=== PATIENT | female | born 1990 | race Two or more races ===

== ENCOUNTER 2025-03-15 07:29 | Emergency (ER) | payer MEDICAID, SELFPAY ==
[2025-03-15 07:30] VITALS: BMI 25.2
[2025-03-15 07:38] VITALS: BP 105/71; PULSE 67; RESP 16; TEMP 37.3; O2SAT 98
--- NOTE | 2025-03-15 07:42 | EDNOTE_ITS ---
<Statement entered by Sunitha Degroot MD - 03/15/25 12:29> As co-signing physician, I was present and available for consult prn. I concur with the plan and care as documented by the midlevel provider. ED OB Contraction Preg RMI/HPI General Chief complaint: Vaginal Bleeding Stated complaint: 8WKS PREG WITH VAG BLEEDING Time Seen by Provider: 03/15/25 07:33 Source: patient Arrival date/time: 03/15/25 07:29 35-year-old female with no known medical history presents to the emergency room with a chief complaint of vaginal spotting x 2 days. Patient is currently 8 weeks . She is a G4, P2 Mode of arrival: ambulatory Limitations: no limitations Related Data Home Medications ?Medication ?Instructions ?Recorded ?Confirmed vit no.95-ferrous 1 tab PO QDAY 11/21/23 0601/16 fumarate 28 mg-folic acid 800 mcg tablet () Previous Rx's ?Medication ?Instructions ?Recorded docusate sodium 100 mg capsule 100 mg PO BID #30 caps 11/23/23 (Colace) ibuprofen 600 mg tablet 600 mg PO Q6H PRN fever or p ain 11/23/23 #30 tabs Allergies Allergy/AdvReac Type Severity Reaction Status Date / Time No Known Allergies Allergy Verified 03/15/25 07:32 Review of Systems Review of Systems Systems Reviewed: All systems reviewed, normal except as documented Constitutional Constitutional: Reports system reviewed and no additional complaints, except as documented, Denies fatigue, Denies fever(s), Denies headache(s) and Denies weakness Eyes Eyes: Reports system reviewed and no additional complaints, except as documented, Denies blurry vision and Denies change in vision ENT Ears, Nose, Mouth, and Throat: Reports system reviewed and no additional complaints, except as documented, Denies otalgia, Denies headache(s), Denies nasal congestion, Denies throat swelling and Denies vertigo Cardiovascular Cardiovascular: Reports system reviewed and no additional complaints, except as documented, Denies chest pain, Denies dyspnea and Denies dyspnea on exertion Respiratory Respiratory: Reports system reviewed and no additional complaints, except as documented, Denies chest congestion, Denies cough, Denies dyspnea, Denies dy spnea on exertion and Denies wheezing Gastrointestinal Gastrointestinal: Reports system reviewed and no additional complaints, except as documented, Denies abdominal pain, Denies cramping, Denies nausea and Denies vomiting Genitourinary Genitourinary: Reports system reviewed and no additional complaints, except as documented, Reports abnormal vaginal bleeding and Reports pelvic pain Musculoskeletal Musculoskeletal: Reports system reviewed and no additional complaints, except as documented and Reports back pain Integumentary/Breasts Skin/Breast: Reports system reviewed and no additional complaints, except as documented and Denies wounds Neurologic Neurologic: Reports system reviewed and no additional complaints, except as documented, Denies confusion, Denies headache(s), Denies lack of coordination, Denies vertigo and Denies weakness Psychiatric Psychiatric: Reports system reviewed and no additional complaints, except as documented, Denies anxiety, Denies confusion, Denies depression, Denies paranoia, Denies suicidal ideation and Denies tactile hallucinations Endocrine Endocrine: Reports system reviewed and no additional complaints, except as documented and Denies fatigue Hematologic/Lymphatic Hematologic/Lymphatic: Reports system reviewed and no additional complaints, except as documented and Denies lymphadenopathy Allergic/Immunologic Allergic/Immunologic: Reports system reviewed and no additional complaints, except as documented, Denies throat swelling, Denies urticaria and Denies wheezing Past Medical History Past Medical History CARDIAC: Negative Cardiac Disorders or Congestive Heart Failure RESPIRATORY: Negative Chronic Obstructive Pulmonary Disease (COPD) or Asthma GASTROINTESTINAL: Negative Hepatitis GENITOURINARY: Negative Renal Disease REPRODUCTIVE: Negative Endometriosis, Pelvic Inflammatory Disease, Previous Pregnancies or Uterine Prolapse ENDOCRINE: Negative Diabetes Mellitus Type 1 or Diabetes Mellitus Type 2 HEMATOLOGIC: Negative Sickle Cell Disease PSYCHO/SOCIAL: Positive Anxiety OTHER HISTORY: Negative Autoimmune Disease, MRSA, VRSA, Vancomycin-Resistant E nterococci, Human Immunodeficiency Virus (HIV), Chicken Pox, Measles, Mumps, Rubella (Ivorian Measles), Pertussis, Clostridium Difficile or Cancer Family History FAMILY HISTORY: Positive Family Cardiac Disorders (high blood pressure-mom); Negative Family Psychiatric Problems, Family Respiratory Disorders, Family Gastrointestinal Problems, Family Cancer, Family Surgery or Family Anesthesia Reaction Social History SMOKING STATUS: Never smoker ED Exam General Limitations: Present no limitations General appearance: Present alert and in no apparent distress Head Head exam: Present atraumatic Eye Eye exam: Present normal appearance, PERRL and EOMI ENT ENT exam: Present normal exam, normal oropharynx and mucous membranes moist Neck Neck exam: Present normal inspection, full ROM and trachea midline Chest Chest inspection: Present normal inspection and symmetric chest wall rise Respiratory Respiratory exam: Present normal lung sounds bilaterally Cardiovascular Cardiovascular exam: Present regular rate, normal rhythm and normal heart sounds Abdominal Exam Abdominal exam: Present soft and normal bowel sounds; Absent tenderness External exam: Absent tenderness Extremities Exam Extremities exam: Present normal inspection and full ROM Back Exam Back exam: Present normal inspection and full ROM Neurological Exam Neurological exam: Present alert, oriented X3 and CN II-XII intact Psychiatric Psychiatric exam: Present normal affect and normal mood Skin Skin exam: Present warm, dry, intact and normal color Course Quality Measures none Orders Category Date Time Status US OB <= 14 weeks fetus Stat Exams 03/15/25 07:42 Completed ABO/RH Type Stat Lab 03/15/25 08:30 Completed Beta HCG,Quantitative Stat Lab 03/15/25 08:30 Completed CBC Stat Lab 03/15/25 08:30 Completed CMP [Comprehensive Metabolic Panel] Stat Lab 03/15/25 08:30 Completed UA [Urinalysis] Stat Lab 03/15/25 07:30 Completed Vital Signs Vital signs: Vital Signs Temperature 99.1 F 03/15/25 07:38 Pulse Rate 67 03/15/25 07:38 Respiratory Rate 16 03/15/25 07:38 Blood Pressure 105/71 03/15/25 07:38 Pulse Oximetry (%) 98 03/15/25 07:38 Oxygen Delivery Method Room Air 03/15/25 07:38 Vaginal Bleeding MDM Narrative MDM Narrative: 35-year-old female with no known medical history presents to the emergency room with a chief complaint of vaginal spotting x 2 days. Patient is currently 8 weeks . She is a G4, P2 Patient is hemodynamically stable and in no apparent distress Physical examination shows a soft nontender abdomen. The patient is complaining of some lower abdominal cramping and some mild back pain. Ultrasound OB was completed and shows a viable intrauterine gestation of 7 weeks and 5 days. Cardiac motion is at 176 bpm and the patient's hCG levels are at 98,154. There is arterial flow to both ovaries. There is no evidence of any ectopic Patient was discharged and educated to follow-up with primary care provider in the next 24 to 48 hours and return to the emergency room for any evidence of worsening signs or symptoms Patient data External records reviewed:: [facility] previous records Clinical information provided by:: patient Social determinants that could affect healthcare access:: none Patient has the following chronic illnesses:: No chronic illness How is presenting disease/condition affected by chronic disease/condition?: no chronic disease Evaluation data The following diagnostics were reviewed and interpreted by me:: lab results and radiology exam(s) Lab and/or radiology exams considered but not ordered:: Labs and radiology exams considered and ordered Interpretation Summary: Ultrasound OB- Medications / Prescriptions Medications or Prescriptions considered but not ordered:: No medication given Medication administrations:: No medication given Consultations Consultation(s) initiated? (list below): No Diagnosis Vaginal Bleeding Differential Diagnosis: threatened , dysfunctional uterine bleeding, incomplete , ectopic without intrauterine and vaginal bleeding Most likely diagnosis given after review of the tests above:: Vaginal bleeding Admission Indicated Admission indicated?: not indicated Admission Request Was there a request for admission?: No Disposition Plan Disposition Plan: Discharge Discharge Attestation Discharge Attestation: The patient and all family members were given an opportunity to ask questions and understood the discharge instructions. Discharge instructions specifically effects, indications for sooner follow up or return to the emergency department, and the expected course of current diagnosis. Patient condition: Stable Discharge Plan Plan Patient Disposition: HOME (Self Care) Discharge Disposition comment: Stable Prescriptions/Referrals Prescriptions/Med Rec: No Action PNV no.95-ferrous fumarate-FA [] 28 mg iron- 800 mcg tablet 1 tab PO QDAY Patient Comments: TAKE 1 TABLET BY MOUTH EVERY DAY ibuprofen 600 mg tablet 600 mg PO Q6H PRN (Reason: fever or pain) Qty: 30 0RF docusate sodium [Colace] 100 mg capsule 100 mg PO BID Qty: 30 0RF Referrals: Aden Gore MD [Primary Care Provider, SOCIAL WORK COORDINATOR] - In 1 week Problem List Clinical Impression: Vaginal spotting Patient/Caregiver Discharge Instructions Education Materials: ED Dysfunctional Uterine Bleeding Additional Instructions: Please follow-up with your SOCIAL WORK COORDINATOR in the next 24 to 48 hours Ultrasound shows a in good standing at 7 weeks and 5 days. heart tones are 176 bpm. Your hCG levels are 98,154 For any evidence of worsening signs or symptoms return emergency room immediately Print Language: Algerian Stand Alone Forms: Machelle Award Info., Work/School Release, Patient Portal Info Letter EUGENIE/MALACHI Supervising Physician PA/MALACHI Supervising Physician: Dr. Ibanez
--- NOTE | 2025-03-15 07:42 | XR_ITS ---
Examination: Complete OB ultrasound, less than 14 weeks, transabdominal Date and time of exam: March 15, 2025, 0756 hours INDICATIONS: Vaginal bleeding and cramping beginning 2 days ago Technique: Obstetrical ultrasound images less than 14 weeks performed via transabdominal imaging Findings: A normal shaped single intrauterine gestation is present in the uterus. CRL 1.5 cm corresponds to 7 weeks 5 days gestational age Cardiac motion 176 bpm Ultrasonographic survey of visible and placental structures unremarkable. Amniotic fluid volume appears appropriate for this estimated gestational age. Right ovary 3.9 cm arterial flow Left ovary 3.2 cm arterial flow IMPRESSION: Viable intrauterine gestation 7 weeks 5 days.
[2025-03-15 07:59] LABS: Collection Type, Urine Clean Catch
[2025-03-15 08:20] LABS: Bacteria,Urine Rare; Bilirubin,Urine Negative (Negative); Blood,Urine 2+ (Negative); Color,Urine Lt-Yellow (Lt Yel-Yel); Glucose, Urine Negative (Negative); Ketones,Urine Negative (Negative); Leukocyte Esterase,Urine Positive (Negative); Nitrite,Urine Negative (Negative); PH,Urine 8.0 (5.0-7.0); Protein,Urine Trace (Neg - Trace); RBC,Urine 10 /hpf (0-3); Specific Gravity,Urine 1.022 (1.001-1.035); Squamous Epithelial Cell,Urine 14 /hpf (0-5); Urobilinogen,Urine Negative mg/dL (0.0-1.0); WBC,Urine 10 /hpf (0-5)
[2025-03-15 08:29] LABS: Clarity,Urine Hazy (Clear/Hazy)
[2025-03-15 08:49] LABS: Basophils # (Auto) 0.0 Thou/mm3 (0.0-0.2); Basophils % (Auto) 0 % (0-2.5); Eosinophils # (Auto) 0.0 Thou/mm3 (0.0-0.5); Eosinophils % (Auto) 0 % (0-10); Hematocrit 36.7 % (36.0-46.0); Hemoglobin 12.3 g/dL (12.0-16.0); Immature Granulocytes Auto 0.02 Thou/mm3 (0.00-0.00); Lymphocytes # (Auto) 1.9 Thou/mm3 (1.0-4.8); Lymphocytes % (Auto) 32 % (10-50); Mean Corpuscular HGB Conc 33.5 g/dl (31.0-37.0); Mean Corpuscular Hemoglobin 29.1 pg (25.0-35.0); Mean Corpuscular Volume 87 fL (80-100); Monocytes # (Auto) 0.3 Thou/mm3 (0.0-0.8); Monocytes % (Auto) 5 % (0-12); Neutrophils # (Auto) 3.6 Thou/mm3 (1.8-7.7); Neutrophils % (Auto) 62 % (37-80); Nucleated Red Blood Cell # 0.00 Thou/mm3 (0.00-0.00); Nucleated Red Blood Cell % 0 /100 WBC (0); Platelet Count 183 Thou/mm3 (140-440); RDW Standard Deviation 39.3 fL (36.4-46.3); Red Blood Count 4.23 Miln/mm3 (4.00-5.20); White Blood Count 5.9 Thou/mm3 (3.6-11.0)
[2025-03-15 09:40] LABS: Alanine Aminotransferase 8 U/L (10-49); Albumin, Serum 4.5 gm/dL (3.5-5.0); Albumin/Globulin Ratio 2.0 (1.2-2.2); Alkaline Phosphatase 49 U/L (46-116); Anion Gap 10 (7-16); Aspartate Amino Transferase 17 U/L (0-34); BUN/Creatinine Ratio 8 Ratio (12-20); Bilirubin,Total 0.7 mg/dL (0.3-1.2); Blood Urea Nitrogen < 5 mg/dL (9-23); Calcium 8.6 mg/dL (8.3-10.6); Calcium (Corrected) 8.6 mg/dL (8.5-10.1); Carbon Dioxide 23.3 mMol/L (20.0-31.0); Chloride 106 mMol/L (98-107); Creatinine (Component) 0.6 mg/dL (0.6-1.3); Estimated Creatinine Clearance 116.0 mL/min (>60); Globulin 2.3 gm/dL (2.3-3.5); Glucose 113 mg/dL (74-106); Osmolality,Calculated 275 (275-295); Potassium 3.8 mMol/L (3.4-5.1); Sodium 139 mMol/L (136-145); Total Protein 6.8 gm/dL (5.7-8.2); eGFR > 60 See Note
[2025-03-15 09:43] LABS: Beta HCG,Quantitative 98154 mIU/mL (<5.0)
== END 2025-03-15 10:11 | disposition home or self-care (01) ==
PROVIDERS: Emergency Provider Nurse Practitioner Family; PCP Specialist
DX: O20.9 Hemorrhage in early pregnancy, unspecified (principal); Z3A.08 8 weeks gestation of pregnancy
CPT/HCPCS: 36415; 76801; 80053; 81001; 84702; 85025; 86900; 86901; 99281